=== PATIENT | male | born 1985 | race Caucasian/White ===

== ENCOUNTER 2017-03-13 21:06 | Inpatient (IN) | payer MEDICARE, MEDICAID ==
[~2017-03-13] VITALS: Ht 167.6 cm; Wt 94.1 kg
[~2017-03-13 21:06] MED LIST: DIPH25 PO; DIVA500T52 PO; OLAN5TAB5 PO
[2017-03-13] MEDS ORDERED: RISP2 PO (22:06)
[2017-03-13] MEDS ORDERED: DIPH25 PO (22:06)
[2017-03-13] MEDS ORDERED: TRAZ-147 PO (22:06)
[2017-03-13 22:25] LABS: BASOPHILS % (AUTO) 0.5 % (0.0-2.0); EOSINOPHILS % (AUTO) 2.1 % (1.0-6.0); HEMATOCRIT 45.8 % (41-53); HEMOGLOBIN 15.3 g/dL (13.5-17.5); LYMPHOCYTES # (AUTO) 2.5 K/uL (1.0-4.8); LYMPHOCYTES % (AUTO) 22.9 % (22.0-44.0); MEAN CORPUSCULAR HEMOGLOBIN 29.1 pg (26.0-34.0); MEAN CORPUSCULAR HGB CONC 33.4 G/dL (31.0-37.0); MEAN CORPUSCULAR VOLUME 87 fL (80-100); MONOCYTES # (AUTO) 0.9 K/uL (0.1-1.0); MONOCYTES % (AUTO) 8.1 % (2.0-9.0); NEUTROPHILS # (AUTO) 7.2 K/uL (1.8-7.7); NEUTROPHILS % (AUTO) 66.4 % (40.0-70.0); PLATELET COUNT (AUTO) 291 K/uL (150-450); RED BLOOD CELL COUNT(AUTO) 5.26 MIL/uL (4.50-5.90); RED CELL DISTRIBUTION WIDTH 13.1 % (11.5-14.5); WHITE BLOOD COUNT (AUTO) 10.8 K/uL (4.5-11.0)
[2017-03-13] MEDS ORDERED: ZOLPIDEM TARTRATE 10 MG TABLET PO PRN (22:30)
[2017-03-13 22:37] LABS: ANION GAP 5 mmol/L (8-16); CALCIUM, TOTAL 9.1 mg/dL (8.8-10.5); CARBON DIOXIDE 32 mmol/L (22-29); CHLORIDE 103 mmol/L (98-107); CREATININE 0.98 mg/dL (0.60-1.30); GLOMERULAR FILTR. RATE CALC > 60 mL/min (>60); POTASSIUM 3.3 mmol/L (3.5-5.1); SODIUM SERUM 140 mmol/L (136-145); UREA NITROGEN, BLOOD 11 mg/dL (7-18)
[2017-03-13 22:43] LABS: ALANINE AMINOTRANSFERASE 33 U/L (12-78); ALBUMIN 3.7 g/dL (3.4-5.0); ASPARTATE AMINOTRANSFERASE 21 U/L (15-37); BILIRUBIN,TOTAL 0.3 mg/dL (0.1-1.0); TOTAL PROTEIN, SERUM 7.8 g/dL (6.4-8.2)
[2017-03-14 01:23] VITALS: BP 125/78
[2017-03-14] MEDS: OLANZapine 5 MG RAPDIS TABLET PO PRN ×2 (01:25→13:15)
[2017-03-14] MEDS ORDERED: INFLUENZA VIRUS VACCINE QVS 2017-18 (3YR+)/PF 60 MCG/0.5 ML SYRINGE IM ONE (03:00)
[2017-03-14] MEDS ORDERED: POTASSIUM CHLORIDE 20 MEQ ER TABLET PO ONE (08:00)
[2017-03-14] MEDS: NICOTINE 21 MG/24 HOUR PATCH TD SCH (08:45)
[2017-03-14 08:49] VITALS: BP 112/64
[2017-03-14 16:04] VITALS: BP 108/63
[2017-03-14] MEDS: LORazepam 2 MG TABLET PO PRN (18:29)
[2017-03-14] MEDS: RisperiDONE 2 MG TABLET PO SCH (20:20)
[2017-03-14] MEDS: DiphenhydrAMINE HCL 50 MG CAPSULE PO SCH (20:20)
[2017-03-14] MEDS: TraZODone HCL 100 MG TABLET PO SCH (20:20)
[2017-03-15 04:58] VITALS: BP 115/70
[2017-03-15 08:21] VITALS: BP 116/75
[2017-03-15] MEDS: NICOTINE 21 MG/24 HOUR PATCH TD SCH (08:27)
[2017-03-15 09:41] LABS: HEMOGLOBIN A1C 5.6 % (4.5-6.2)
[2017-03-15 09:55] LABS: POTASSIUM 4.5 mmol/L (3.5-5.1); THYROID STIMULATING HORMONE 0.94 uIU/mL (0.36-3.74)
[2017-03-15 16:08] VITALS: BP 121/68
[2017-03-15] MEDS: DiphenhydrAMINE HCL 50 MG CAPSULE PO SCH (20:16)
[2017-03-15] MEDS: RisperiDONE 2 MG TABLET PO SCH (20:16)
[2017-03-15] MEDS: TraZODone HCL 100 MG TABLET PO SCH (20:16)
[2017-03-16 05:55] VITALS: BP 127/72
[2017-03-16 08:25] VITALS: BP 112/68
[2017-03-16] MEDS: NICOTINE 21 MG/24 HOUR PATCH TD SCH (09:01)
[2017-03-16] MEDS: LORazepam 2 MG TABLET PO PRN ×2 (10:48→16:27)
[2017-03-16 16:15] VITALS: BP 124/87
[2017-03-16] MEDS: RisperiDONE 2 MG TABLET PO SCH (20:21)
[2017-03-16] MEDS: DiphenhydrAMINE HCL 50 MG CAPSULE PO SCH (20:21)
[2017-03-16] MEDS: TraZODone HCL 100 MG TABLET PO SCH (20:21)
[2017-03-17 01:46] VITALS: BP 119/67
[2017-03-17] MEDS: NICOTINE 21 MG/24 HOUR PATCH TD SCH (08:38)
[2017-03-17 08:41] VITALS: BP 117/74
[2017-03-17 16:26] VITALS: BP 133/87
[2017-03-17] MEDS: TraZODone HCL 100 MG TABLET PO SCH (20:11)
[2017-03-17] MEDS: DiphenhydrAMINE HCL 50 MG CAPSULE PO SCH (20:12)
[2017-03-17] MEDS: RisperiDONE 2 MG TABLET PO SCH (20:12)
== END 2017-03-17 21:15 | disposition home or self-care (01) | DRG 885 ==
LOC: EMS 21:08 → B2X 23:28
PROVIDERS: ADMIT Psychiatry & Neurology Child & Adolescent Psychiatry; ATTEND Psychiatry & Neurology Child & Adolescent Psychiatry
PROC: 3E0234Z Introduction of Serum, Toxoid and Vaccine into Muscle, Percutaneous Approach (ICD-10-PCS; principal; 2017-03-14)
DX: F20.0 Paranoid schizophrenia (principal); G40.909 Epilepsy, unspecified, not intractable, without status epilepticus; F12.10 Cannabis abuse, uncomplicated; F19.20 Other psychoactive substance dependence, uncomplicated; F15.10 Other stimulant abuse, uncomplicated; F41.9 Anxiety disorder, unspecified; F17.200 Nicotine dependence, unspecified, uncomplicated; Z88.8 Allergy status to other drugs, medicaments and biological substances; Z79.899 Other long term (current) drug therapy; Z23 Encounter for immunization
CPT/HCPCS: 83036; 84132; 84439; 84443; 90471; 99285; G0480

== ENCOUNTER 2017-05-04 16:23 | Inpatient (IN) | payer MEDICAID, MEDICARE ==
[~2017-05-04] VITALS: Ht 167.6 cm; Wt 88.9 kg
[~2017-05-04 16:23] MED LIST changes: -DIVA500T52 PO; -OLAN5TAB5 PO; +RISP2 PO; +TRAZ-147 PO
[2017-05-04 16:59] LABS: BASOPHILS % (AUTO) 1.2 % (0.0-2.0); EOSINOPHILS % (AUTO) 1.2 % (1.0-6.0); HEMATOCRIT 43.3 % (41-53); HEMOGLOBIN 14.3 g/dL (13.5-17.5); LYMPHOCYTES # (AUTO) 2.7 K/uL (1.0-4.8); LYMPHOCYTES % (AUTO) 25.9 % (22.0-44.0); MEAN CORPUSCULAR HEMOGLOBIN 28.6 pg (26.0-34.0); MEAN CORPUSCULAR HGB CONC 32.9 G/dL (31.0-37.0); MEAN CORPUSCULAR VOLUME 87 fL (80-100); MONOCYTES % (AUTO) 9.1 % (2.0-9.0); NEUTROPHILS # (AUTO) 6.6 K/uL (1.8-7.7); NEUTROPHILS % (AUTO) 62.6 % (40.0-70.0); PLATELET COUNT (AUTO) 252 K/uL (150-450); RED BLOOD CELL COUNT(AUTO) 4.99 MIL/uL (4.50-5.90); RED CELL DISTRIBUTION WIDTH 13.5 % (11.5-14.5)
[2017-05-04 17:10] LABS: ANION GAP 6 mmol/L (8-16); CARBON DIOXIDE 31 mmol/L (22-29); CHLORIDE 106 mmol/L (98-107); CREATININE 0.89 mg/dL (0.60-1.30); GLOMERULAR FILTR. RATE CALC > 60 mL/min (>60); GLUCOSE,RANDOM 109 mg/dL (70-110); POTASSIUM 3.8 mmol/L (3.5-5.1); SODIUM SERUM 143 mmol/L (136-145); UREA NITROGEN, BLOOD 12 mg/dL (7-18)
[2017-05-04 17:14] LABS: AMPHET/METH SCREEN,URINE POSITIVE (NEGATIVE); BARBITURATE SCREEN, URINE NEGATIVE (NEGATIVE); BENZODIAZEPINES SCREEN,URINE NEGATIVE (NEGATIVE); CANNABINOID SCREEN,URINE POSITIVE (NEGATIVE); COCAINE SCREEN,URINE NEGATIVE (NEGATIVE); METHADONE SCREEN, URINE NEGATIVE (NEGATIVE); OPIATE SCREEN,URINE NEGATIVE (NEGATIVE)
[2017-05-04] MEDS ORDERED: ZOLPIDEM TARTRATE 10 MG TABLET PO PRN (17:15)
[2017-05-04 17:16] LABS: PHENCYCLIDINE SCREEN,URINE NEGATIVE (NEGATIVE)
[2017-05-04 17:17] LABS: ALANINE AMINOTRANSFERASE 29 U/L (12-78); ALBUMIN 3.5 g/dL (3.4-5.0); ALKALINE PHOSPHATASE 112 U/L (46-116); ASPARTATE AMINOTRANSFERASE 20 U/L (15-37); BILIRUBIN,TOTAL 0.3 mg/dL (0.1-1.0)
[2017-05-04] MEDS: LORazepam 2 MG TABLET PO PRN (17:39)
[2017-05-05] MEDS: LORazepam 2 MG TABLET PO PRN ×2 (09:12→14:44)
[2017-05-05 09:18] LABS: CHOL/HDL RATIO 3.7 (4.2-7.3)
[2017-05-05 14:07] VITALS: BP 122/72
[2017-05-05] MEDS: NICOTINE 21 MG/24 HOUR PATCH TD SCH (14:44)
[2017-05-05 16:19] VITALS: BP 138/56
[2017-05-06 01:25] VITALS: BP 106/61
[2017-05-06] MEDS ORDERED: -PHARMACY VACCINE NOTE- MISC ONE (04:30)
[2017-05-06] MEDS: LORazepam 2 MG TABLET PO PRN ×2 (06:14→11:20)
[2017-05-06 08:32] VITALS: BP 111/65
[2017-05-06] MEDS: RisperiDONE 1 MG TABLET PO SCH (10:02)
[2017-05-06] MEDS: NICOTINE 21 MG/24 HOUR PATCH TD SCH (10:02)
[2017-05-06] MEDS: CITALOPRAM HYDROBROMIDE 20 MG TABLET PO SCH (11:19)
[2017-05-06 16:23] VITALS: BP 123/74
[2017-05-06] MEDS: RisperiDONE 2 MG TABLET PO SCH (20:44)
[2017-05-06] MEDS: TraZODone HCL 100 MG TABLET PO SCH (20:44)
[2017-05-06] MEDS: DiphenhydrAMINE HCL 25 MG CAPSULE PO SCH (20:44)
[2017-05-07 06:28] VITALS: BP 108/62
[2017-05-07] MEDS: LORazepam 2 MG TABLET PO PRN ×2 (06:40→16:11)
[2017-05-07 08:32] VITALS: BP 100/62
[2017-05-07] MEDS: NICOTINE 21 MG/24 HOUR PATCH TD SCH (09:21)
[2017-05-07] MEDS: RisperiDONE 1 MG TABLET PO SCH (09:21)
[2017-05-07] MEDS: CITALOPRAM HYDROBROMIDE 20 MG TABLET PO SCH (09:21)
[2017-05-07 16:22] VITALS: BP 126/77
[2017-05-07] MEDS: RisperiDONE 2 MG TABLET PO SCH (20:58)
[2017-05-07] MEDS: DiphenhydrAMINE HCL 25 MG CAPSULE PO SCH (20:58)
[2017-05-07] MEDS: TraZODone HCL 100 MG TABLET PO SCH (20:58)
[2017-05-08 01:38] VITALS: BP 114/68
[2017-05-08 08:36] VITALS: BP 110/68
[2017-05-08] MEDS: CITALOPRAM HYDROBROMIDE 20 MG TABLET PO SCH (09:09)
[2017-05-08] MEDS: RisperiDONE 1 MG TABLET PO SCH (09:09)
[2017-05-08] MEDS: NICOTINE 21 MG/24 HOUR PATCH TD SCH (09:10)
[2017-05-08 16:13] VITALS: BP 134/88
[2017-05-08] MEDS: DiphenhydrAMINE HCL 25 MG CAPSULE PO SCH (20:33)
[2017-05-08] MEDS: TraZODone HCL 100 MG TABLET PO SCH (20:33)
[2017-05-08] MEDS: RisperiDONE 2 MG TABLET PO SCH (20:33)
[2017-05-09 06:46] VITALS: BP 102/83
[2017-05-09] MEDS: CITALOPRAM HYDROBROMIDE 20 MG TABLET PO SCH (08:33)
[2017-05-09] MEDS: RisperiDONE 1 MG TABLET PO SCH (08:33)
[2017-05-09] MEDS: NICOTINE 21 MG/24 HOUR PATCH TD SCH (08:33)
[2017-05-09 08:39] VITALS: BP 123/79
[2017-05-09] MEDS: LORazepam 2 MG TABLET PO PRN ×2 (08:53→17:26)
[2017-05-09 16:23] VITALS: BP 136/79
[2017-05-09] MEDS: TraZODone HCL 100 MG TABLET PO SCH (20:55)
[2017-05-09] MEDS: DiphenhydrAMINE HCL 25 MG CAPSULE PO SCH (20:56)
[2017-05-09] MEDS: RisperiDONE 2 MG TABLET PO SCH (20:57)
[2017-05-10 01:00] VITALS: BP_SYST 104; BP_DIAS 59; BP_DIAS 60
[2017-05-10 08:37] VITALS: BP 106/67
[2017-05-10] MEDS: RisperiDONE 1 MG TABLET PO SCH (09:00)
[2017-05-10] MEDS: CITALOPRAM HYDROBROMIDE 20 MG TABLET PO SCH (09:00)
[2017-05-10] MEDS: NICOTINE 21 MG/24 HOUR PATCH TD SCH (09:00)
[2017-05-10 16:20] VITALS: BP 122/78
[2017-05-10] MEDS: RisperiDONE 2 MG TABLET PO SCH (20:37)
[2017-05-10] MEDS: TraZODone HCL 100 MG TABLET PO SCH (20:37)
[2017-05-10] MEDS: DiphenhydrAMINE HCL 25 MG CAPSULE PO SCH (20:37)
[2017-05-11 00:18] VITALS: BP 124/81
[2017-05-11 08:33] VITALS: BP 123/67
[2017-05-11] MEDS: NICOTINE 21 MG/24 HOUR PATCH TD SCH (08:47)
[2017-05-11] MEDS: RisperiDONE 1 MG TABLET PO SCH (08:47)
[2017-05-11] MEDS: CITALOPRAM HYDROBROMIDE 20 MG TABLET PO SCH (08:47)
[2017-05-11] MEDS: LORazepam 2 MG TABLET PO PRN (08:51)
[2017-05-11] MEDS ORDERED: CITA20TA9 PO (14:59)
[2017-05-11] MEDS ORDERED: RISP1TAB89 PO (14:59)
[2017-05-11 16:24] VITALS: BP 121/80
[2017-05-11] MEDS: RisperiDONE 2 MG TABLET PO SCH (20:05)
[2017-05-11] MEDS: TraZODone HCL 100 MG TABLET PO SCH (20:05)
[2017-05-11] MEDS: DiphenhydrAMINE HCL 25 MG CAPSULE PO SCH (20:05)
[2017-05-12 01:27] VITALS: BP 105/60
[2017-05-12] MEDS: CITALOPRAM HYDROBROMIDE 20 MG TABLET PO SCH (08:30)
[2017-05-12] MEDS: RisperiDONE 1 MG TABLET PO SCH (08:30)
[2017-05-12] MEDS: NICOTINE 21 MG/24 HOUR PATCH TD SCH (08:32)
[2017-05-12 08:46] VITALS: BP 130/76
[2017-05-12 16:13] VITALS: BP 136/73
[2017-05-12] MEDS: DiphenhydrAMINE HCL 25 MG CAPSULE PO SCH (20:45)
[2017-05-12] MEDS: TraZODone HCL 100 MG TABLET PO SCH (20:45)
[2017-05-12] MEDS: RisperiDONE 2 MG TABLET PO SCH (20:45)
[2017-05-13] VITALS: BP 119/62
[2017-05-13] MEDS: CITALOPRAM HYDROBROMIDE 20 MG TABLET PO SCH (08:14)
[2017-05-13] MEDS: NICOTINE 21 MG/24 HOUR PATCH TD SCH (08:14)
[2017-05-13] MEDS: RisperiDONE 1 MG TABLET PO SCH (08:14)
[2017-05-13 08:31] VITALS: BP 128/67
[2017-05-13 16:19] VITALS: BP 115/70
[2017-05-13] MEDS: DiphenhydrAMINE HCL 25 MG CAPSULE PO SCH (20:30)
[2017-05-13] MEDS: RisperiDONE 2 MG TABLET PO SCH (20:31)
[2017-05-13] MEDS: TraZODone HCL 100 MG TABLET PO SCH (20:31)
[2017-05-14 00:30] VITALS: BP 100/66
[2017-05-14] MEDS: CITALOPRAM HYDROBROMIDE 20 MG TABLET PO SCH (08:42)
[2017-05-14] MEDS: NICOTINE 21 MG/24 HOUR PATCH TD SCH (08:42)
[2017-05-14] MEDS: RisperiDONE 1 MG TABLET PO SCH (08:42)
[2017-05-14 09:23] VITALS: BP 132/87
== END 2017-05-14 10:00 | disposition home or self-care (01) | DRG 885 ==
LOC: EMS 16:24 → B2X 05-05 12:08
DX: F25.1 Schizoaffective disorder, depressive type (principal); F79 Unspecified intellectual disabilities; R45.851 Suicidal ideations; F12.10 Cannabis abuse, uncomplicated; F15.10 Other stimulant abuse, uncomplicated; G40.909 Epilepsy, unspecified, not intractable, without status epilepticus; Z59.0 Homelessness; Z79.899 Other long term (current) drug therapy; Z91.5 Personal history of self-harm; Z91.14 Patient's other noncompliance with medication regimen; Z88.8 Allergy status to other drugs, medicaments and biological substances
CPT/HCPCS: 93005; 99285; G0480

== ENCOUNTER 2017-11-20 18:24 | Emergency (ER) | payer MEDICARE, SELFPAY ==
[~2017-11-20 18:24] MED LIST changes: +CITA-106 PO; +RISP1TAB89 PO; -TRAZ-147 PO; +TRAZ-220 PO
[2017-11-20 19:19] LABS: BASOPHILS % (AUTO) 0.4 % (0.0-2.0); EOSINOPHILS % (AUTO) 0.5 % (1.0-6.0); HEMOGLOBIN 14.4 g/dL (13.5-17.5); LYMPHOCYTES # (AUTO) 2.1 K/uL (1.0-4.8); LYMPHOCYTES % (AUTO) 18.4 % (22.0-44.0); MEAN CORPUSCULAR HEMOGLOBIN 29.6 pg (26.0-34.0); MEAN CORPUSCULAR HGB CONC 32.8 G/dL (31.0-37.0); MEAN CORPUSCULAR VOLUME 90 fL (80-100); MONOCYTES % (AUTO) 8.6 % (2.0-9.0); NEUTROPHILS # (AUTO) 8.3 K/uL (1.8-7.7); NEUTROPHILS % (AUTO) 72.1 % (40.0-70.0); PLATELET COUNT (AUTO) 275 K/uL (150-450); RED BLOOD CELL COUNT(AUTO) 4.88 MIL/uL (4.50-5.90); RED CELL DISTRIBUTION WIDTH 13.6 % (11.5-14.5)
[2017-11-20 19:39] LABS: ALANINE AMINOTRANSFERASE 25 U/L (12-78); ALBUMIN 3.7 g/dL (3.4-5.0); ALKALINE PHOSPHATASE 84 U/L (46-116); ANION GAP 8 mmol/L (8-16); ASPARTATE AMINOTRANSFERASE 19 U/L (15-37); BILIRUBIN,TOTAL 0.4 mg/dL (0.1-1.0); CALCIUM, TOTAL 9.2 mg/dL (8.8-10.5); CARBON DIOXIDE 28 mmol/L (22-29); CHLORIDE 105 mmol/L (98-107); CREATININE 0.95 mg/dL (0.60-1.30); GLOMERULAR FILTR. RATE CALC > 60 mL/min (>60); GLUCOSE,RANDOM 96 mg/dL (70-110); POTASSIUM 3.9 mmol/L (3.5-5.1); SODIUM SERUM 141 mmol/L (136-145); TOTAL PROTEIN, SERUM 7.2 g/dL (6.4-8.2); UREA NITROGEN, BLOOD 10 mg/dL (7-18)
== END 2017-11-20 19:43 | disposition left against medical advice (07) ==
LOC: EMS 18:25
DX: Z53.21 Procedure and treatment not carried out due to patient leaving prior to being seen by health care provider (principal)
CPT/HCPCS: 36415; 80053; 85025; G0480; 99284

== ENCOUNTER 2018-05-06 10:52 | Inpatient (IN) | payer MEDICARE, MEDICAID ==
[~2018-05-06] VITALS: Ht 162.6 cm; Wt 83.4 kg
[~2018-05-06 10:52] MED LIST changes: -TRAZ-220 PO
[2018-05-06] MEDS ORDERED: RisperiDONE 1 MG TABLET PO SCH (11:15)
[2018-05-06] MEDS ORDERED: CITALOPRAM HYDROBROMIDE 20 MG TABLET PO SCH (11:15)
[2018-05-06] MEDS ORDERED: ZOLPIDEM TARTRATE 10 MG TABLET PO PRN (11:15)
[2018-05-06 13:11] VITALS: BP 127/77
[2018-05-06] MEDS ORDERED: MAGNESIUM HYDROXIDE SUSPENSION 30 ML UDCUP PO PRN (13:15)
[2018-05-06] MEDS ORDERED: GuaiFENesin/D-METHORPHAN [SUGAR-FREE] 200-20MG/10 ML SYRUP UDCUP PO PRN (13:15)
[2018-05-06] MEDS ORDERED: MAG HYDROX/AL HYDROX/SIMETH ES 30 ML SUSPENSION UDCUP PO PRN (13:15)
[2018-05-06] MEDS ORDERED: DOCUSATE SODIUM 100 MG CAPSULE PO PRN (13:15)
[2018-05-06] MEDS ORDERED: NICOTINE 14 MG/24 HOUR PATCH TD PRN (13:15)
[2018-05-06] MEDS ORDERED: IBUPROFEN 400 MG TABLET PO PRN (13:15)
[2018-05-06] MEDS ORDERED: CloNIDine HCL 0.1 MG TABLET PO PRN (13:15)
[2018-05-06] MEDS ORDERED: ACETAMINOPHEN 325 MG TABLET PO PRN (13:15)
[2018-05-06] MEDS ORDERED: ONDANSETRON HCL 4 MG TABLET PO PRN (13:15)
[2018-05-06] MEDS ORDERED: LOPERAMIDE HCL 2 MG CAPSULE PO PRN (13:15)
[2018-05-06] MEDS ORDERED: PETROLATUM,WHITE 71 GM JELLY TP PRN (13:15)
[2018-05-06 16:12] VITALS: BP 100/61
[2018-05-06] MEDS: LORazepam 2 MG TABLET PO PRN (17:22)
[2018-05-06] MEDS: OLANZapine 5 MG RAPDIS TABLET PO PRN (17:29)
[2018-05-06] MEDS: RisperiDONE 2 MG TABLET PO SCH (20:36)
[2018-05-06] MEDS: DiphenhydrAMINE HCL 25 MG CAPSULE PO SCH (20:37)
[2018-05-06] MEDS ORDERED: RisperiDONE 2 MG TABLET PO SCH (21:00)
[2018-05-06] MEDS ORDERED: DiphenhydrAMINE HCL 25 MG CAPSULE PO SCH (21:00)
[2018-05-07 06:22] VITALS: BP 105/60
[2018-05-07] MEDS ORDERED: -PHARMACY VACCINE NOTE- MISC ONE (06:30)
[2018-05-07 08:15] VITALS: BP 110/70
[2018-05-07] MEDS: CITALOPRAM HYDROBROMIDE 20 MG TABLET PO SCH (08:35)
[2018-05-07] MEDS: RisperiDONE 1 MG TABLET PO SCH (08:35)
[2018-05-07] MEDS: LORazepam 2 MG TABLET PO PRN ×2 (08:35→16:36)
[2018-05-07 09:09] LABS: BASOPHILS % (AUTO) 0.9 % (0.0-2.0); EOSINOPHILS % (AUTO) 2.3 % (1.0-6.0); HEMATOCRIT 43.5 % (41-53); HEMOGLOBIN 14.1 g/dL (13.5-17.5); LYMPHOCYTES # (AUTO) 1.5 K/uL (1.0-4.8); LYMPHOCYTES % (AUTO) 23.9 % (22.0-44.0); MEAN CORPUSCULAR HEMOGLOBIN 29.5 pg (26.0-34.0); MEAN CORPUSCULAR HGB CONC 32.5 G/dL (31.0-37.0); MEAN CORPUSCULAR VOLUME 91 fL (80-100); MONOCYTES # (AUTO) 0.5 K/uL (0.1-1.0); MONOCYTES % (AUTO) 8.5 % (2.0-9.0); NEUTROPHILS # (AUTO) 4.1 K/uL (1.8-7.7); NEUTROPHILS % (AUTO) 64.4 % (40.0-70.0); PLATELET COUNT (AUTO) 227 K/uL (150-450); RED BLOOD CELL COUNT(AUTO) 4.79 MIL/uL (4.50-5.90); RED CELL DISTRIBUTION WIDTH 13.9 % (11.5-14.5)
[2018-05-07 09:10] LABS: ALANINE AMINOTRANSFERASE 33 U/L (12-78); ALBUMIN 3.2 g/dL (3.4-5.0); ALKALINE PHOSPHATASE 81 U/L (46-116); ANION GAP 4 mmol/L (8-16); ASPARTATE AMINOTRANSFERASE 18 U/L (15-37); BILIRUBIN,TOTAL 0.4 mg/dL (0.1-1.0); CALCIUM, TOTAL 8.9 mg/dL (8.8-10.5); CARBON DIOXIDE 32 mmol/L (22-29); CHLORIDE 103 mmol/L (98-107); CHOL/HDL RATIO 3.6 (4.2-7.3); CHOLESTEROL 190 mg/dL (131-200); CREATININE 0.83 mg/dL (0.60-1.30); FREE T4 (FREE THYROXINE) 0.86 ng/dL (0.76-1.46); GLOMERULAR FILTR. RATE CALC > 60 mL/min (>60); GLUCOSE,RANDOM 58 mg/dL (70-110); HDL CHOLESTEROL 53 mg/dL (40-60); LDL CHOL (CALC.) 120 mg/dL (0-130); POTASSIUM 3.9 mmol/L (3.5-5.1); SODIUM SERUM 139 mmol/L (136-145); TOTAL PROTEIN, SERUM 6.6 g/dL (6.4-8.2); TRIGLYCERIDES 85 mg/dL (15-150); UREA NITROGEN, BLOOD 19 mg/dL (7-18)
[2018-05-07 09:42] LABS: HEMOGLOBIN A1C 5.5 % (4.5-6.2)
[2018-05-07] MEDS: ALBUTEROL SULFATE HFA 90 MCG/PUFF 8 GM INHALER IH PRN (11:38)
[2018-05-07 12:44] LABS: GLUCOMETER DEV NAME(LOC) BV2S.; GLUCOSE,POINT OF CARE 116 MG/DL (70-110)
[2018-05-07 16:28] VITALS: BP 117/74
[2018-05-07] MEDS: OLANZapine 5 MG RAPDIS TABLET PO PRN (16:36)
[2018-05-07] MEDS: DiphenhydrAMINE HCL 25 MG CAPSULE PO SCH (20:59)
[2018-05-07] MEDS: RisperiDONE 2 MG TABLET PO SCH (20:59)
[2018-05-08] MEDS: LORazepam 2 MG TABLET PO PRN ×2 (02:08→08:39)
[2018-05-08] MEDS: OLANZapine 5 MG RAPDIS TABLET PO PRN (02:08)
[2018-05-08 05:12] VITALS: BP 108/62
[2018-05-08 08:05] VITALS: BP 106/68
[2018-05-08] MEDS: CITALOPRAM HYDROBROMIDE 20 MG TABLET PO SCH (08:17)
[2018-05-08] MEDS: RisperiDONE 1 MG TABLET PO SCH (08:17)
[2018-05-08 08:24] LABS: AMPHET/METH SCREEN,URINE NEGATIVE (NEGATIVE); BARBITURATE SCREEN, URINE NEGATIVE (NEGATIVE); BENZODIAZEPINES SCREEN,URINE NEGATIVE (NEGATIVE); CANNABINOID SCREEN,URINE NEGATIVE (NEGATIVE); COCAINE SCREEN,URINE NEGATIVE (NEGATIVE); METHADONE SCREEN, URINE NEGATIVE (NEGATIVE); OPIATE SCREEN,URINE NEGATIVE (NEGATIVE); PHENCYCLIDINE SCREEN,URINE NEGATIVE (NEGATIVE)
[2018-05-08 08:25] LABS: BILIRUBIN,URINE NEGATIVE (NEGATIVE); GLUCOSE, URINE (UA) NEGATIVE (NEGATIVE); KETONES,URINE NEGATIVE (NEGATIVE); LEUKOCYTE ESTERASE ,URINE NEGATIVE (NEGATIVE); NITRATE,URINE NEGATIVE (NEGATIVE); OCCULT BLOOD,URINE NEGATIVE (NEGATIVE); PROTEIN,URINE NEGATIVE (NEGATIVE); UROBILINOGEN,URINE 0.2 mg/dL (<=1.0)
[2018-05-08 08:27] LABS: APPEARANCE,URINE HAZY (CLEAR)
[2018-05-08] MEDS ORDERED: DiphenhydrAMINE HCL 50 MG/ML VIAL ONE (09:56)
[2018-05-08] MEDS ORDERED: LORazepam 2 MG/ML VIAL IM ONE (10:00)
[2018-05-08] MEDS ORDERED: DiphenhydrAMINE HCL 50 MG/ML VIAL IM ONE (10:00)
[2018-05-08] MEDS: ALBUTEROL SULFATE HFA 90 MCG/PUFF 8 GM INHALER IH PRN (10:04)
[2018-05-08 10:35] VITALS: BP 112/84
[2018-05-08 16:04] VITALS: BP 135/76
[2018-05-08] MEDS: RisperiDONE 2 MG TABLET PO SCH (20:14)
[2018-05-08] MEDS: DiphenhydrAMINE HCL 25 MG CAPSULE PO SCH (20:14)
[2018-05-09 06:57] VITALS: BP 130/81
[2018-05-09 07:47] VITALS: BP 132/73
[2018-05-09 08:06] VITALS: BP 132/73
[2018-05-09] MEDS: RisperiDONE 1 MG TABLET PO SCH (08:40)
[2018-05-09] MEDS: LORazepam 2 MG TABLET PO PRN ×2 (08:40→16:29)
[2018-05-09] MEDS: CITALOPRAM HYDROBROMIDE 20 MG TABLET PO SCH (08:40)
[2018-05-09] MEDS: ALBUTEROL SULFATE HFA 90 MCG/PUFF 8 GM INHALER IH PRN (13:29)
[2018-05-09 16:06] VITALS: BP 127/79
[2018-05-09] MEDS: RisperiDONE 2 MG TABLET PO SCH (20:11)
[2018-05-09] MEDS: DiphenhydrAMINE HCL 25 MG CAPSULE PO SCH (20:11)
[2018-05-10 03:20] VITALS: BP 121/81
[2018-05-10] MEDS: CITALOPRAM HYDROBROMIDE 20 MG TABLET PO SCH (08:30)
[2018-05-10] MEDS: RisperiDONE 1 MG TABLET PO SCH (08:30)
[2018-05-10] MEDS: LORazepam 2 MG TABLET PO PRN ×2 (08:30→16:59)
[2018-05-10] MEDS: ALBUTEROL SULFATE HFA 90 MCG/PUFF 8 GM INHALER IH PRN ×2 (10:03→16:50)
[2018-05-10 13:02] VITALS: BP 123/78
[2018-05-10 16:12] VITALS: BP 118/81
[2018-05-10] MEDS: DiphenhydrAMINE HCL 25 MG CAPSULE PO SCH (20:32)
[2018-05-10] MEDS: RisperiDONE 2 MG TABLET PO SCH (20:33)
[2018-05-11 00:10] VITALS: BP 112/71
[2018-05-11 08:19] VITALS: BP 106/69
[2018-05-11] MEDS: CITALOPRAM HYDROBROMIDE 20 MG TABLET PO SCH (09:35)
[2018-05-11] MEDS: RisperiDONE 1 MG TABLET PO SCH (09:35)
[2018-05-11] MEDS: ALBUTEROL SULFATE HFA 90 MCG/PUFF 8 GM INHALER IH PRN (15:42)
[2018-05-11] MEDS: OLANZapine 5 MG RAPDIS TABLET PO PRN (15:49)
[2018-05-11 16:05] VITALS: BP 106/77
[2018-05-11] MEDS: DiphenhydrAMINE HCL 25 MG CAPSULE PO SCH (20:32)
[2018-05-11] MEDS: RisperiDONE 2 MG TABLET PO SCH (20:32)
[2018-05-12 03:31] VITALS: BP 117/74
[2018-05-12] MEDS: CITALOPRAM HYDROBROMIDE 20 MG TABLET PO SCH (08:05)
[2018-05-12] MEDS: RisperiDONE 1 MG TABLET PO SCH (08:05)
[2018-05-12] MEDS: ALBUTEROL SULFATE HFA 90 MCG/PUFF 8 GM INHALER IH PRN ×2 (08:06→17:23)
[2018-05-12 08:08] VITALS: BP 109/68
[2018-05-12 16:17] VITALS: BP 117/75
[2018-05-12] MEDS: DiphenhydrAMINE HCL 25 MG CAPSULE PO SCH (20:32)
[2018-05-12] MEDS: RisperiDONE 2 MG TABLET PO SCH (20:32)
[2018-05-13 01:22] VITALS: BP 121/76
[2018-05-13] MEDS: CITALOPRAM HYDROBROMIDE 20 MG TABLET PO SCH (08:20)
[2018-05-13] MEDS: ALBUTEROL SULFATE HFA 90 MCG/PUFF 8 GM INHALER IH PRN ×2 (08:20→17:05)
[2018-05-13] MEDS: RisperiDONE 1 MG TABLET PO SCH (08:20)
[2018-05-13 08:21] VITALS: BP 128/70
[2018-05-13 16:05] VITALS: BP 118/83
[2018-05-13] MEDS: OLANZapine 5 MG RAPDIS TABLET PO PRN (17:11)
[2018-05-13] MEDS: DiphenhydrAMINE HCL 25 MG CAPSULE PO SCH (20:06)
[2018-05-13] MEDS: RisperiDONE 2 MG TABLET PO SCH (20:06)
[2018-05-14 02:38] VITALS: BP 102/64
[2018-05-14 08:23] VITALS: BP 96/50
[2018-05-14] MEDS: CITALOPRAM HYDROBROMIDE 20 MG TABLET PO SCH (08:29)
[2018-05-14] MEDS: RisperiDONE 1 MG TABLET PO SCH (08:29)
[2018-05-14] MEDS: ALBUTEROL SULFATE HFA 90 MCG/PUFF 8 GM INHALER IH PRN (11:46)
[2018-05-14 16:02] VITALS: BP 132/77
[2018-05-14] MEDS: RisperiDONE 2 MG TABLET PO SCH (20:35)
[2018-05-14] MEDS: DiphenhydrAMINE HCL 25 MG CAPSULE PO SCH (20:36)
[2018-05-15 03:13] VITALS: BP 103/62
[2018-05-15] MEDS: CITALOPRAM HYDROBROMIDE 20 MG TABLET PO SCH (08:29)
[2018-05-15] MEDS: RisperiDONE 1 MG TABLET PO SCH (08:29)
[2018-05-15] MEDS: ALBUTEROL SULFATE HFA 90 MCG/PUFF 8 GM INHALER IH PRN (08:31)
== END 2018-05-15 09:50 | disposition home or self-care (01) | DRG 885 ==
LOC: B2X 11:00
DX: F25.1 Schizoaffective disorder, depressive type (principal); G93.40 Encephalopathy, unspecified; E16.2 Hypoglycemia, unspecified; E88.09 Other disorders of plasma-protein metabolism, not elsewhere classified; F41.9 Anxiety disorder, unspecified; K21.9 Gastro-esophageal reflux disease without esophagitis; Z79.899 Other long term (current) drug therapy; Z91.19 Patient's noncompliance with other medical treatment and regimen; Z91.5 Personal history of self-harm; Z88.8 Allergy status to other drugs, medicaments and biological substances
CPT/HCPCS: 80307; 83036; 84439; 84443; 87081; J1200; J2060; J3230; J3535

== ENCOUNTER 2018-05-17 18:36 | Inpatient (IN) | payer MEDICARE, MEDICAID ==
[~2018-05-17] VITALS: Ht 167.6 cm; Wt 83.0 kg
[~2018-05-17 18:36] MED LIST changes: -DIPH25 PO
[2018-05-17 19:00] VITALS: BP 118/81
[2018-05-17] MEDS ORDERED: RisperiDONE 2 MG TABLET PO SCH (21:00)
[2018-05-17] MEDS ORDERED: -PHARMACY VACCINE NOTE- MISC ONE (22:45)
[2018-05-18 00:50] VITALS: BP 137/81
[2018-05-18 00:51] VITALS: BP 137/81
[2018-05-18 06:53] LABS: BASOPHILS % (AUTO) 0.9 % (0.0-2.0); HEMOGLOBIN 14.5 g/dL (13.5-17.5); LYMPHOCYTES # (AUTO) 2.4 K/uL (1.0-4.8); LYMPHOCYTES % (AUTO) 33.1 % (22.0-44.0); MEAN CORPUSCULAR HEMOGLOBIN 30.3 pg (26.0-34.0); MEAN CORPUSCULAR HGB CONC 33.9 G/dL (31.0-37.0); MEAN CORPUSCULAR VOLUME 90 fL (80-100); MONOCYTES # (AUTO) 0.9 K/uL (0.1-1.0); MONOCYTES % (AUTO) 11.9 % (2.0-9.0); NEUTROPHILS # (AUTO) 3.8 K/uL (1.8-7.7); NEUTROPHILS % (AUTO) 52.1 % (40.0-70.0); PLATELET COUNT (AUTO) 233 K/uL (150-450); RED BLOOD CELL COUNT(AUTO) 4.79 MIL/uL (4.50-5.90); RED CELL DISTRIBUTION WIDTH 13.4 % (11.5-14.5)
[2018-05-18 07:14] LABS: ALANINE AMINOTRANSFERASE 33 U/L (12-78); ALBUMIN 3.2 g/dL (3.4-5.0); ALKALINE PHOSPHATASE 88 U/L (46-116); ANION GAP 5 mmol/L (8-16); ASPARTATE AMINOTRANSFERASE 22 U/L (15-37); BILIRUBIN,TOTAL 0.4 mg/dL (0.1-1.0); CALCIUM, TOTAL 8.8 mg/dL (8.8-10.5); CARBON DIOXIDE 33 mmol/L (22-29); CHLORIDE 103 mmol/L (98-107); CHOL/HDL RATIO 2.8 (4.2-7.3); CHOLESTEROL 183 mg/dL (131-200); CREATININE 0.93 mg/dL (0.60-1.30); FREE T4 (FREE THYROXINE) 0.85 ng/dL (0.76-1.46); GLOMERULAR FILTR. RATE CALC > 60 mL/min (>60); GLUCOSE,RANDOM 88 mg/dL (70-110); HDL CHOLESTEROL 66 mg/dL (40-60); LDL CHOL (CALC.) 108 mg/dL (0-130); SODIUM SERUM 141 mmol/L (136-145); THYROID STIMULATING HORMONE 1.06 uIU/mL (0.36-3.74); TOTAL PROTEIN, SERUM 6.7 g/dL (6.4-8.2); TRIGLYCERIDES 46 mg/dL (15-150); UREA NITROGEN, BLOOD 19 mg/dL (7-18)
[2018-05-18] MEDS ORDERED: MAG HYDROX/AL HYDROX/SIMETH ES 30 ML SUSPENSION UDCUP PO PRN (07:45)
[2018-05-18] MEDS ORDERED: MAGNESIUM HYDROXIDE SUSPENSION 30 ML UDCUP PO PRN (07:45)
[2018-05-18] MEDS ORDERED: LOPERAMIDE HCL 2 MG CAPSULE PO PRN (07:45)
[2018-05-18] MEDS ORDERED: GuaiFENesin/D-METHORPHAN [SUGAR-FREE] 200-20MG/10 ML SYRUP UDCUP PO PRN (07:45)
[2018-05-18] MEDS ORDERED: CloNIDine HCL 0.1 MG TABLET PO PRN (07:45)
[2018-05-18] MEDS ORDERED: ACETAMINOPHEN 325 MG TABLET PO PRN (07:45)
[2018-05-18] MEDS ORDERED: NICOTINE 14 MG/24 HOUR PATCH TD PRN (07:45)
[2018-05-18] MEDS ORDERED: PETROLATUM,WHITE 71 GM JELLY TP PRN (07:45)
[2018-05-18] MEDS ORDERED: ONDANSETRON HCL 4 MG TABLET PO PRN (07:45)
[2018-05-18] MEDS ORDERED: DOCUSATE SODIUM 100 MG CAPSULE PO PRN (07:45)
[2018-05-18] MEDS ORDERED: IBUPROFEN 400 MG TABLET PO PRN (07:45)
[2018-05-18 07:54] LABS: AMPHET/METH SCREEN,URINE NEGATIVE (NEGATIVE); BARBITURATE SCREEN, URINE NEGATIVE (NEGATIVE); BENZODIAZEPINES SCREEN,URINE NEGATIVE (NEGATIVE); CANNABINOID SCREEN,URINE NEGATIVE (NEGATIVE); COCAINE SCREEN,URINE NEGATIVE (NEGATIVE); METHADONE SCREEN, URINE NEGATIVE (NEGATIVE); OPIATE SCREEN,URINE NEGATIVE (NEGATIVE)
[2018-05-18 07:56] LABS: PHENCYCLIDINE SCREEN,URINE NEGATIVE (NEGATIVE)
[2018-05-18 08:00] VITALS: BP 118/76
[2018-05-18 09:00] LABS: APPEARANCE,URINE CLEAR (CLEAR); BILIRUBIN,URINE NEGATIVE (NEGATIVE); GLUCOSE, URINE (UA) NEGATIVE (NEGATIVE); KETONES,URINE NEGATIVE (NEGATIVE); LEUKOCYTE ESTERASE ,URINE NEGATIVE (NEGATIVE); NITRATE,URINE NEGATIVE (NEGATIVE); OCCULT BLOOD,URINE NEGATIVE (NEGATIVE); PROTEIN,URINE NEGATIVE (NEGATIVE); UROBILINOGEN,URINE 0.2 mg/dL (<=1.0)
[2018-05-18] MEDS ORDERED: CITALOPRAM HYDROBROMIDE 20 MG TABLET PO SCH (09:00)
[2018-05-18] MEDS ORDERED: RisperiDONE 1 MG TABLET PO SCH (09:00)
[2018-05-18] MEDS: LORazepam 2 MG TABLET PO PRN (11:00)
[2018-05-18 16:46] VITALS: BP 94/55
[2018-05-18] MEDS: ALBUTEROL SULFATE HFA 90 MCG/PUFF 8 GM INHALER IH PRN (17:54)
[2018-05-18] MEDS: RisperiDONE 2 MG TABLET PO SCH (20:56)
[2018-05-19 06:42] LABS: HEMOGLOBIN A1C 5.2 % (4.5-6.2)
[2018-05-19 07:02] LABS: ALANINE AMINOTRANSFERASE 30 U/L (12-78); ALBUMIN 3.2 g/dL (3.4-5.0); ALKALINE PHOSPHATASE 81 U/L (46-116); ANION GAP 5 mmol/L (8-16); ASPARTATE AMINOTRANSFERASE 21 U/L (15-37); BILIRUBIN,TOTAL 0.3 mg/dL (0.1-1.0); CALCIUM, TOTAL 9.1 mg/dL (8.8-10.5); CARBON DIOXIDE 32 mmol/L (22-29); CHLORIDE 104 mmol/L (98-107); CHOL/HDL RATIO 3.4 (4.2-7.3); CHOLESTEROL 203 mg/dL (131-200); CREATININE 0.86 mg/dL (0.60-1.30); GLOMERULAR FILTR. RATE CALC > 60 mL/min (>60); GLUCOSE,RANDOM 86 mg/dL (70-110); HDL CHOLESTEROL 60 mg/dL (40-60); LDL CHOL (CALC.) 125 mg/dL (0-130); POTASSIUM 4.6 mmol/L (3.5-5.1); SODIUM SERUM 141 mmol/L (136-145); THYROID STIMULATING HORMONE 0.52 uIU/mL (0.36-3.74); TOTAL PROTEIN, SERUM 6.5 g/dL (6.4-8.2); TRIGLYCERIDES 90 mg/dL (15-150); UREA NITROGEN, BLOOD 18 mg/dL (7-18)
[2018-05-19 08:41] LABS: EOSINOPHILS % (AUTO) 1.6 % (1.0-6.0); HEMATOCRIT 44.3 % (41-53); HEMOGLOBIN 14.6 g/dL (13.5-17.5); LYMPHOCYTES # (AUTO) 1.8 K/uL (1.0-4.8); LYMPHOCYTES % (AUTO) 30.2 % (22.0-44.0); MEAN CORPUSCULAR VOLUME 91 fL (80-100); MONOCYTES # (AUTO) 0.5 K/uL (0.1-1.0); MONOCYTES % (AUTO) 8.8 % (2.0-9.0); NEUTROPHILS # (AUTO) 3.5 K/uL (1.8-7.7); NEUTROPHILS % (AUTO) 58.4 % (40.0-70.0); PLATELET COUNT (AUTO) 232 K/uL (150-450); RED BLOOD CELL COUNT(AUTO) 4.88 MIL/uL (4.50-5.90); RED CELL DISTRIBUTION WIDTH 13.7 % (11.5-14.5)
[2018-05-19 08:50] VITALS: BP 115/76
[2018-05-19] MEDS: RisperiDONE 2 MG TABLET PO SCH ×2 (09:19→20:08)
[2018-05-19] MEDS: CITALOPRAM HYDROBROMIDE 20 MG TABLET PO SCH (09:19)
[2018-05-19] MEDS: ALBUTEROL SULFATE HFA 90 MCG/PUFF 8 GM INHALER IH PRN (16:08)
[2018-05-19 16:50] VITALS: BP 116/78
[2018-05-19] MEDS: ZOLPIDEM TARTRATE 10 MG TABLET PO PRN (20:08)
[2018-05-20] MEDS: CITALOPRAM HYDROBROMIDE 20 MG TABLET PO SCH (07:36)
[2018-05-20] MEDS: RisperiDONE 2 MG TABLET PO SCH ×2 (07:37→20:58)
[2018-05-20] MEDS: ALBUTEROL SULFATE HFA 90 MCG/PUFF 8 GM INHALER IH PRN ×2 (07:37→16:11)
[2018-05-20 08:02] VITALS: BP 114/67
[2018-05-20] MEDS: LORazepam 2 MG TABLET PO PRN ×2 (09:13→18:33)
[2018-05-20] MEDS: OLANZapine 5 MG RAPDIS TABLET PO PRN ×2 (09:14→16:11)
[2018-05-20] MEDS ORDERED: PALIPERIDONE PALMITATE 234 MG/1.5 ML SYRINGE IM ONE (15:00)
[2018-05-20 17:00] VITALS: BP 113/82
[2018-05-21] MEDS: RisperiDONE 2 MG TABLET PO SCH ×2 (08:59→20:08)
[2018-05-21] MEDS: LORazepam 2 MG TABLET PO PRN (08:59)
[2018-05-21] MEDS: OLANZapine 5 MG RAPDIS TABLET PO PRN (08:59)
[2018-05-21] MEDS: CITALOPRAM HYDROBROMIDE 20 MG TABLET PO SCH (09:00)
[2018-05-21 11:02] VITALS: BP 95/68
[2018-05-21 18:01] VITALS: BP 123/79
[2018-05-22] MEDS: CITALOPRAM HYDROBROMIDE 20 MG TABLET PO SCH (09:23)
[2018-05-22] MEDS: RisperiDONE 2 MG TABLET PO SCH ×2 (09:23→20:45)
[2018-05-22] MEDS: ALBUTEROL SULFATE HFA 90 MCG/PUFF 8 GM INHALER IH PRN ×2 (10:08→17:47)
[2018-05-22 10:43] VITALS: BP 119/65
[2018-05-22] MEDS: OLANZapine 5 MG RAPDIS TABLET PO PRN ×2 (16:29→22:19)
[2018-05-22 18:48] VITALS: BP 122/96
[2018-05-23 09:00] VITALS: BP 121/59
[2018-05-23] MEDS: CITALOPRAM HYDROBROMIDE 20 MG TABLET PO SCH (09:46)
[2018-05-23] MEDS: RisperiDONE 2 MG TABLET PO SCH ×2 (09:47→20:18)
[2018-05-23] MEDS: ALBUTEROL SULFATE HFA 90 MCG/PUFF 8 GM INHALER IH PRN (14:52)
[2018-05-23 20:40] VITALS: BP 141/98
[2018-05-24 08:00] VITALS: BP 116/71
[2018-05-24] MEDS: CITALOPRAM HYDROBROMIDE 20 MG TABLET PO SCH (08:52)
[2018-05-24] MEDS: RisperiDONE 2 MG TABLET PO SCH ×2 (08:52→20:35)
[2018-05-24] MEDS: ALBUTEROL SULFATE HFA 90 MCG/PUFF 8 GM INHALER IH PRN ×2 (08:54→16:33)
[2018-05-24] MEDS ORDERED: PALIPERIDONE PALMITATE 156 MG/ML SYRINGE IM ONE (09:00)
[2018-05-24] MEDS: LORazepam 2 MG TABLET PO PRN (11:11)
[2018-05-24 16:49] VITALS: BP 114/86
[2018-05-24] MEDS: ZOLPIDEM TARTRATE 10 MG TABLET PO PRN (20:35)
[2018-05-25] MEDS: CITALOPRAM HYDROBROMIDE 20 MG TABLET PO SCH (09:12)
[2018-05-25] MEDS: RisperiDONE 2 MG TABLET PO SCH ×2 (09:12→20:45)
[2018-05-25 09:53] VITALS: BP 103/70
[2018-05-25] MEDS: OLANZapine 5 MG RAPDIS TABLET PO PRN (12:15)
[2018-05-25] MEDS: LORazepam 2 MG TABLET PO PRN ×2 (12:15→17:05)
[2018-05-25] MEDS: ALBUTEROL SULFATE HFA 90 MCG/PUFF 8 GM INHALER IH PRN (12:17)
[2018-05-25 17:00] VITALS: BP 116/66
[2018-05-26 08:05] VITALS: BP 123/81
[2018-05-26] MEDS ORDERED: PALI234D IM (08:16)
[2018-05-26] MEDS: CITALOPRAM HYDROBROMIDE 20 MG TABLET PO SCH (08:46)
[2018-05-26] MEDS: RisperiDONE 2 MG TABLET PO SCH (08:48)
[2018-05-26] MEDS: ALBUTEROL SULFATE HFA 90 MCG/PUFF 8 GM INHALER IH PRN (10:33)
[2018-06-21] MEDS ORDERED: PALIPERIDONE PALMITATE 234 MG/1.5 ML SYRINGE IM SCH (09:00)
== END 2018-05-26 11:00 | disposition home or self-care (01) | DRG 885 ==
LOC: 3EX 20:40
DX: F25.1 Schizoaffective disorder, depressive type (principal); R45.851 Suicidal ideations; E78.5 Hyperlipidemia, unspecified; G47.00 Insomnia, unspecified; F19.10 Other psychoactive substance abuse, uncomplicated; K21.9 Gastro-esophageal reflux disease without esophagitis; F41.9 Anxiety disorder, unspecified; Z59.0 Homelessness; Z79.899 Other long term (current) drug therapy; Z28.21 Immunization not carried out because of patient refusal; Z88.8 Allergy status to other drugs, medicaments and biological substances; Z71.51 Drug abuse counseling and surveillance of drug abuser
CPT/HCPCS: 80307; 83036; 84439; 84443; 87081; G0378; J3535

== ENCOUNTER 2019-02-02 11:54 | Inpatient (IN) | payer MEDICARE, MEDICAID ==
[~2019-02-02] VITALS: Ht 167.6 cm; Wt 90.3 kg
[~2019-02-02 11:54] MED LIST changes: +PALI234D IM; -RISP1TAB89 PO
[2019-02-02] MEDS ORDERED: RisperiDONE 1 MG TABLET PO ONE (13:45)
[2019-02-02 14:14] LABS: EOSINOPHILS % (AUTO) 1.4 % (1.0-6.0); HEMOGLOBIN 14.7 g/dL (13.5-17.5); LYMPHOCYTES # (AUTO) 1.7 K/uL (1.0-4.8); LYMPHOCYTES % (AUTO) 20.2 % (22.0-44.0); MEAN CORPUSCULAR HEMOGLOBIN 29.6 pg (26.0-34.0); MEAN CORPUSCULAR HGB CONC 33.4 G/dL (31.0-37.0); MEAN CORPUSCULAR VOLUME 89 fL (80-100); MONOCYTES # (AUTO) 0.6 K/uL (0.1-1.0); MONOCYTES % (AUTO) 7.6 % (2.0-9.0); NEUTROPHILS # (AUTO) 5.8 K/uL (1.8-7.7); NEUTROPHILS % (AUTO) 69.8 % (40.0-70.0); PLATELET COUNT (AUTO) 243 K/uL (150-450); RED BLOOD CELL COUNT(AUTO) 4.96 MIL/uL (4.50-5.90)
[2019-02-02 14:27] LABS: ANION GAP 5 mmol/L (8-16); CALCIUM, TOTAL 8.5 mg/dL (8.8-10.5); CARBON DIOXIDE 31 mmol/L (22-29); CHLORIDE 104 mmol/L (98-107); CREATININE 0.82 mg/dL (0.60-1.30); GLOMERULAR FILTR. RATE CALC > 60 mL/min (>60); GLUCOSE,RANDOM 103 mg/dL (70-110); POTASSIUM 3.9 mmol/L (3.5-5.1); SODIUM SERUM 140 mmol/L (136-145); UREA NITROGEN, BLOOD 12 mg/dL (7-18)
[2019-02-02 14:33] LABS: ALANINE AMINOTRANSFERASE 18 U/L (12-78); ALBUMIN 3.3 g/dL (3.4-5.0); ALKALINE PHOSPHATASE 87 U/L (46-116); ASPARTATE AMINOTRANSFERASE 13 U/L (15-37); BILIRUBIN,TOTAL 0.2 mg/dL (0.1-1.0); TOTAL PROTEIN, SERUM 6.7 g/dL (6.4-8.2)
[2019-02-02 15:21] LABS: APPEARANCE,URINE CLEAR (CLEAR); BILIRUBIN,URINE NEGATIVE (NEGATIVE); GLUCOSE, URINE (UA) NEGATIVE (NEGATIVE); KETONES,URINE NEGATIVE (NEGATIVE); LEUKOCYTE ESTERASE ,URINE NEGATIVE (NEGATIVE); NITRATE,URINE NEGATIVE (NEGATIVE); OCCULT BLOOD,URINE NEGATIVE (NEGATIVE); PROTEIN,URINE NEGATIVE (NEGATIVE)
[2019-02-02 15:26] LABS: AMPHET/METH SCREEN,URINE NEGATIVE (NEGATIVE); BARBITURATE SCREEN, URINE NEGATIVE (NEGATIVE); BENZODIAZEPINES SCREEN,URINE NEGATIVE (NEGATIVE); CANNABINOID SCREEN,URINE NEGATIVE (NEGATIVE); COCAINE SCREEN,URINE NEGATIVE (NEGATIVE); METHADONE SCREEN, URINE NEGATIVE (NEGATIVE); OPIATE SCREEN,URINE NEGATIVE (NEGATIVE)
[2019-02-02 15:28] LABS: PHENCYCLIDINE SCREEN,URINE NEGATIVE (NEGATIVE)
[2019-02-02] MEDS: QUEtiapine FUMARATE 100 MG TABLET PO PRN (15:43)
[2019-02-02] MEDS: LORazepam 2 MG TABLET PO PRN (15:43)
[2019-02-02 18:50] VITALS: BP 114/80
[2019-02-02 18:53] VITALS: BP 114/80
[2019-02-02] MEDS ORDERED: INFLUENZA VIRUS VACCINE QVS 2019-20 (3YR+)/PF 60 MCG/0.5 ML SYRINGE IM ONE (20:15)
[2019-02-03 06:49] VITALS: BP_SYST 108; BP_SYST 110; BP_DIAS 70; BP_DIAS 78
[2019-02-03 08:04] VITALS: BP 106/68
[2019-02-03 08:45] LABS: CHOL/HDL RATIO 4.3 (4.2-7.3); THYROID STIMULATING HORMONE 1.18 uIU/mL (0.36-3.74)
[2019-02-03] MEDS: NICOTINE 14 MG/24 HOUR PATCH TD SCH (09:48)
[2019-02-03 16:28] VITALS: BP 122/78
[2019-02-03] MEDS: RisperiDONE 2 MG TABLET PO SCH (20:28)
[2019-02-04 00:09] VITALS: BP 120/81
[2019-02-04 08:24] VITALS: BP 112/60
[2019-02-04] MEDS: NICOTINE 14 MG/24 HOUR PATCH TD SCH (09:06)
[2019-02-04] MEDS: RisperiDONE 2 MG TABLET PO SCH ×2 (09:06→20:32)
[2019-02-04] MEDS: CITALOPRAM HYDROBROMIDE 20 MG TABLET PO SCH (09:09)
[2019-02-04] MEDS: QUEtiapine FUMARATE 100 MG TABLET PO PRN (15:54)
[2019-02-04 16:09] VITALS: BP 119/76
[2019-02-05 08:35] VITALS: BP 125/89
[2019-02-05] MEDS: CITALOPRAM HYDROBROMIDE 20 MG TABLET PO SCH (08:38)
[2019-02-05] MEDS: RisperiDONE 2 MG TABLET PO SCH ×2 (08:39→20:28)
[2019-02-05] MEDS: NICOTINE 14 MG/24 HOUR PATCH TD SCH (08:39)
[2019-02-05] MEDS: LORazepam 2 MG TABLET PO PRN (08:58)
[2019-02-05] MEDS: QUEtiapine FUMARATE 100 MG TABLET PO PRN (08:59)
[2019-02-05 16:04] VITALS: BP 129/81
[2019-02-06 00:03] VITALS: BP 105/60
[2019-02-06 08:26] VITALS: BP 116/69
[2019-02-06] MEDS: RisperiDONE 2 MG TABLET PO SCH ×2 (10:24→20:12)
[2019-02-06] MEDS: CITALOPRAM HYDROBROMIDE 20 MG TABLET PO SCH (10:24)
[2019-02-06] MEDS: NICOTINE 14 MG/24 HOUR PATCH TD SCH (10:24)
[2019-02-06] MEDS: QUEtiapine FUMARATE 100 MG TABLET PO PRN (14:40)
[2019-02-06 16:02] VITALS: BP 111/70
[2019-02-07 07:01] VITALS: BP 100/69
[2019-02-07] MEDS: CITALOPRAM HYDROBROMIDE 20 MG TABLET PO SCH (08:06)
[2019-02-07] MEDS: RisperiDONE 2 MG TABLET PO SCH ×2 (08:06→20:06)
[2019-02-07] MEDS: NICOTINE 14 MG/24 HOUR PATCH TD SCH (08:07)
[2019-02-07 08:10] VITALS: BP 117/66
[2019-02-07] MEDS ORDERED: ACETAMINOPHEN 325 MG TABLET PO PRN (12:15)
[2019-02-07] MEDS ORDERED: IBUPROFEN 600 MG TABLET PO PRN (12:15)
[2019-02-07 16:02] VITALS: BP 121/79
[2019-02-08 01:30] VITALS: BP 118/70
[2019-02-08] MEDS: ZOLPIDEM TARTRATE 10 MG TABLET PO PRN (01:31)
[2019-02-08 06:28] VITALS: BP 122/76
[2019-02-08] MEDS: QUEtiapine FUMARATE 100 MG TABLET PO PRN ×2 (06:29→16:08)
[2019-02-08] MEDS: LORazepam 2 MG TABLET PO PRN ×2 (06:52→14:29)
[2019-02-08 08:35] VITALS: BP 109/66
[2019-02-08] MEDS: CITALOPRAM HYDROBROMIDE 20 MG TABLET PO SCH (08:39)
[2019-02-08] MEDS: NICOTINE 14 MG/24 HOUR PATCH TD SCH (08:39)
[2019-02-08] MEDS: RisperiDONE 2 MG TABLET PO SCH ×2 (08:39→20:27)
[2019-02-08 16:03] VITALS: BP 122/77
[2019-02-09 08:04] VITALS: BP 104/65
[2019-02-09] MEDS: RisperiDONE 2 MG TABLET PO SCH ×2 (08:52→20:28)
[2019-02-09] MEDS: CITALOPRAM HYDROBROMIDE 20 MG TABLET PO SCH (08:52)
[2019-02-09] MEDS: NICOTINE 14 MG/24 HOUR PATCH TD SCH (08:53)
[2019-02-09] MEDS: QUEtiapine FUMARATE 100 MG TABLET PO PRN ×2 (11:28→17:42)
[2019-02-09] MEDS: LORazepam 2 MG TABLET PO PRN (11:28)
[2019-02-09 16:05] VITALS: BP 120/83
[2019-02-10 00:16] VITALS: BP 126/67
[2019-02-10 00:17] VITALS: BP 126/67
[2019-02-10 08:05] VITALS: BP 114/77
[2019-02-10] MEDS: CITALOPRAM HYDROBROMIDE 20 MG TABLET PO SCH (08:23)
[2019-02-10] MEDS: RisperiDONE 2 MG TABLET PO SCH (08:23)
[2019-02-10] MEDS: NICOTINE 14 MG/24 HOUR PATCH TD SCH (08:23)
[2019-02-10] MEDS: QUEtiapine FUMARATE 100 MG TABLET PO PRN (13:15)
[2019-02-10] MEDS: LORazepam 2 MG TABLET PO PRN (13:15)
[2019-02-10 16:02] VITALS: BP_SYST 108; BP_SYST 96; BP_DIAS 46; BP_DIAS 60
[2019-02-10] MEDS: RisperiDONE 3 MG TABLET PO SCH (20:02)
[2019-02-10] MEDS ORDERED: PALIPERIDONE PALMITATE 234 MG/1.5 ML SYRINGE IM ONE (21:00)
[2019-02-11 00:42] VITALS: BP 119/69
[2019-02-11 08:13] VITALS: BP 125/93
[2019-02-11] MEDS: CITALOPRAM HYDROBROMIDE 20 MG TABLET PO SCH (08:24)
[2019-02-11] MEDS: NICOTINE 14 MG/24 HOUR PATCH TD SCH (08:24)
[2019-02-11] MEDS: RisperiDONE 3 MG TABLET PO SCH ×2 (08:25→20:29)
[2019-02-11 16:01] VITALS: BP 115/76
[2019-02-12 05:19] VITALS: BP 110/67
[2019-02-12] MEDS: LORazepam 2 MG TABLET PO PRN (07:22)
[2019-02-12] MEDS: QUEtiapine FUMARATE 100 MG TABLET PO PRN ×2 (07:22→18:14)
[2019-02-12 08:13] VITALS: BP 118/81
[2019-02-12] MEDS: PANTOPRAZOLE SODIUM 40 MG DR TABLET PO SCH (08:51)
[2019-02-12] MEDS: RisperiDONE 3 MG TABLET PO SCH ×2 (08:51→20:38)
[2019-02-12] MEDS: NICOTINE 14 MG/24 HOUR PATCH TD SCH (08:51)
[2019-02-12] MEDS: CITALOPRAM HYDROBROMIDE 20 MG TABLET PO SCH (08:52)
[2019-02-12 16:01] VITALS: BP 122/78
[2019-02-13 00:15] VITALS: BP 124/63
[2019-02-13 08:19] VITALS: BP 103/60
[2019-02-13] MEDS: PANTOPRAZOLE SODIUM 40 MG DR TABLET PO SCH (08:26)
[2019-02-13] MEDS: CITALOPRAM HYDROBROMIDE 20 MG TABLET PO SCH (08:26)
[2019-02-13] MEDS: NICOTINE 14 MG/24 HOUR PATCH TD SCH (08:26)
[2019-02-13] MEDS: RisperiDONE 3 MG TABLET PO SCH ×2 (08:26→20:24)
[2019-02-13 16:21] VITALS: BP 125/78
[2019-02-13] MEDS: ZOLPIDEM TARTRATE 10 MG TABLET PO PRN (22:39)
[2019-02-14 04:36] VITALS: BP 110/67
[2019-02-14] MEDS: QUEtiapine FUMARATE 100 MG TABLET PO PRN (04:53)
[2019-02-14] MEDS: NICOTINE 14 MG/24 HOUR PATCH TD SCH (08:28)
[2019-02-14] MEDS: RisperiDONE 3 MG TABLET PO SCH ×2 (08:28→20:01)
[2019-02-14] MEDS: PANTOPRAZOLE SODIUM 40 MG DR TABLET PO SCH (08:28)
[2019-02-14] MEDS: CITALOPRAM HYDROBROMIDE 20 MG TABLET PO SCH (08:28)
[2019-02-14] MEDS ORDERED: PALIPERIDONE PALMITATE 156 MG/ML SYRINGE IM ONE (09:00)
[2019-02-14] MEDS: LORazepam 2 MG TABLET PO PRN ×2 (11:24→18:48)
[2019-02-14 16:11] VITALS: BP 123/82
[2019-02-15 00:11] VITALS: BP 108/68
[2019-02-15 08:14] VITALS: BP 107/60
[2019-02-15] MEDS: PANTOPRAZOLE SODIUM 40 MG DR TABLET PO SCH (08:50)
[2019-02-15] MEDS: NICOTINE 14 MG/24 HOUR PATCH TD SCH (08:50)
[2019-02-15] MEDS: CITALOPRAM HYDROBROMIDE 20 MG TABLET PO SCH (08:50)
[2019-02-15] MEDS: RisperiDONE 3 MG TABLET PO SCH ×2 (08:50→20:32)
[2019-02-15] MEDS: LORazepam 2 MG TABLET PO PRN ×2 (12:47→18:00)
[2019-02-15 16:11] VITALS: BP 123/68
[2019-02-15 23:46] VITALS: BP 102/67
[2019-02-16 00:29] VITALS: BP 102/63
[2019-02-16 08:05] VITALS: BP 125/77
[2019-02-16] MEDS: NICOTINE 14 MG/24 HOUR PATCH TD SCH (08:50)
[2019-02-16] MEDS: CITALOPRAM HYDROBROMIDE 20 MG TABLET PO SCH (08:50)
[2019-02-16] MEDS: PANTOPRAZOLE SODIUM 40 MG DR TABLET PO SCH (08:50)
[2019-02-16] MEDS: RisperiDONE 3 MG TABLET PO SCH ×2 (08:50→20:36)
[2019-02-16] MEDS: QUEtiapine FUMARATE 100 MG TABLET PO PRN (12:55)
[2019-02-16 16:02] VITALS: BP 112/68
[2019-02-16] MEDS: LORazepam 2 MG TABLET PO PRN (18:03)
[2019-02-16] MEDS ORDERED: BISMUTH SUBSALICYLATE 262 MG CHEWABLE TABLET CHEW PRN (18:15)
[2019-02-17 00:13] VITALS: BP 106/62
[2019-02-17 08:03] VITALS: BP 110/62
[2019-02-17] MEDS: PANTOPRAZOLE SODIUM 40 MG DR TABLET PO SCH (09:00)
[2019-02-17] MEDS: NICOTINE 14 MG/24 HOUR PATCH TD SCH (09:00)
[2019-02-17] MEDS: RisperiDONE 3 MG TABLET PO SCH ×2 (09:00→20:28)
[2019-02-17] MEDS: CITALOPRAM HYDROBROMIDE 20 MG TABLET PO SCH (09:00)
[2019-02-17 16:11] VITALS: BP 117/80
[2019-02-17] MEDS: LORazepam 2 MG TABLET PO PRN (17:40)
[2019-02-18 00:05] VITALS: BP 110/62
[2019-02-18 07:58] VITALS: BP 115/76
[2019-02-18] MEDS: PANTOPRAZOLE SODIUM 40 MG DR TABLET PO SCH (08:04)
[2019-02-18] MEDS: CITALOPRAM HYDROBROMIDE 20 MG TABLET PO SCH (08:04)
[2019-02-18] MEDS: RisperiDONE 3 MG TABLET PO SCH ×2 (08:04→20:35)
[2019-02-18] MEDS: NICOTINE 14 MG/24 HOUR PATCH TD SCH (08:04)
[2019-02-18] MEDS: LORazepam 2 MG TABLET PO PRN (08:28)
[2019-02-18] MEDS: QUEtiapine FUMARATE 100 MG TABLET PO PRN (14:59)
[2019-02-18 16:02] VITALS: BP 124/74
[2019-02-19 07:17] VITALS: BP 120/81
[2019-02-19 08:04] VITALS: BP 121/61
[2019-02-19] MEDS: NICOTINE 14 MG/24 HOUR PATCH TD SCH (08:16)
[2019-02-19] MEDS: RisperiDONE 3 MG TABLET PO SCH ×2 (08:16→20:35)
[2019-02-19] MEDS: CITALOPRAM HYDROBROMIDE 20 MG TABLET PO SCH (08:16)
[2019-02-19] MEDS: PANTOPRAZOLE SODIUM 40 MG DR TABLET PO SCH (08:16)
[2019-02-19] MEDS: QUEtiapine FUMARATE 100 MG TABLET PO PRN (11:02)
[2019-02-19 17:45] VITALS: BP 120/78
[2019-02-20 06:25] VITALS: BP 124/78
[2019-02-20 08:13] VITALS: BP 122/79
[2019-02-20] MEDS: CITALOPRAM HYDROBROMIDE 20 MG TABLET PO SCH (08:20)
[2019-02-20] MEDS: NICOTINE 14 MG/24 HOUR PATCH TD SCH (08:20)
[2019-02-20] MEDS: RisperiDONE 3 MG TABLET PO SCH ×2 (08:20→21:40)
[2019-02-20] MEDS: PANTOPRAZOLE SODIUM 40 MG DR TABLET PO SCH (08:20)
[2019-02-20 16:02] VITALS: BP 122/85
[2019-02-20] MEDS: BISACODYL 5 MG EC TABLET PO PRN (16:24)
[2019-02-21 08:04] VITALS: BP 121/82
[2019-02-21] MEDS: PANTOPRAZOLE SODIUM 40 MG DR TABLET PO SCH (08:11)
[2019-02-21] MEDS: RisperiDONE 3 MG TABLET PO SCH ×2 (08:11→20:03)
[2019-02-21] MEDS: NICOTINE 14 MG/24 HOUR PATCH TD SCH (08:11)
[2019-02-21] MEDS: CITALOPRAM HYDROBROMIDE 20 MG TABLET PO SCH (08:11)
[2019-02-21] MEDS ORDERED: ONDANSETRON HCL 4 MG TABLET PO PRN (10:00)
[2019-02-21] MEDS: BISACODYL 5 MG EC TABLET PO PRN (10:38)
[2019-02-21 16:00] VITALS: BP 121/81
[2019-02-22 04:31] VITALS: BP 123/79
[2019-02-22] MEDS: RisperiDONE 3 MG TABLET PO SCH (08:14)
[2019-02-22] MEDS: NICOTINE 14 MG/24 HOUR PATCH TD SCH (08:14)
[2019-02-22] MEDS: PANTOPRAZOLE SODIUM 40 MG DR TABLET PO SCH (08:14)
[2019-02-22] MEDS: CITALOPRAM HYDROBROMIDE 20 MG TABLET PO SCH (08:14)
[2019-02-22 08:34] VITALS: BP 121/83
[2019-02-22 16:03] VITALS: BP 122/84
[2019-02-22] MEDS: ZOLPIDEM TARTRATE 10 MG TABLET PO PRN (21:03)
[2019-02-23 05:12] VITALS: BP 111/60
[2019-02-23 07:46] LABS: BASOPHILS % (AUTO) 0.8 % (0.0-2.0); EOSINOPHILS % (AUTO) 1.2 % (1.0-6.0); HEMATOCRIT 45.5 % (41-53); HEMOGLOBIN 15.3 g/dL (13.5-17.5); LYMPHOCYTES # (AUTO) 2.3 K/uL (1.0-4.8); LYMPHOCYTES % (AUTO) 28.2 % (22.0-44.0); MEAN CORPUSCULAR HEMOGLOBIN 29.8 pg (26.0-34.0); MEAN CORPUSCULAR HGB CONC 33.7 G/dL (31.0-37.0); MEAN CORPUSCULAR VOLUME 89 fL (80-100); MONOCYTES # (AUTO) 0.8 K/uL (0.1-1.0); MONOCYTES % (AUTO) 9.7 % (2.0-9.0); NEUTROPHILS # (AUTO) 4.9 K/uL (1.8-7.7); NEUTROPHILS % (AUTO) 60.1 % (40.0-70.0); PLATELET COUNT (AUTO) 271 K/uL (150-450); RED BLOOD CELL COUNT(AUTO) 5.14 MIL/uL (4.50-5.90); RED CELL DISTRIBUTION WIDTH 13.3 % (11.5-14.5)
[2019-02-23 08:10] VITALS: BP 135/93
[2019-02-23] MEDS: CITALOPRAM HYDROBROMIDE 20 MG TABLET PO SCH (08:19)
[2019-02-23] MEDS: PANTOPRAZOLE SODIUM 40 MG DR TABLET PO SCH (08:19)
[2019-02-23] MEDS: NICOTINE 14 MG/24 HOUR PATCH TD SCH (08:20)
[2019-02-23] MEDS: QUEtiapine FUMARATE 100 MG TABLET PO PRN (08:24)
[2019-02-23 16:04] VITALS: BP 124/90
[2019-02-24 05:24] VITALS: BP 114/72
[2019-02-24 08:03] VITALS: BP 122/91
[2019-02-24] MEDS: CITALOPRAM HYDROBROMIDE 20 MG TABLET PO SCH (08:53)
[2019-02-24] MEDS: NICOTINE 14 MG/24 HOUR PATCH TD SCH (08:53)
[2019-02-24] MEDS: PANTOPRAZOLE SODIUM 40 MG DR TABLET PO SCH (08:53)
[2019-02-24 15:53] VITALS: BP 121/90
[2019-02-24 16:27] VITALS: BP 121/90
[2019-02-25 06:13] VITALS: BP 121/79
[2019-02-25 08:13] VITALS: BP 122/79
[2019-02-25 08:22] LABS: BASOPHILS % (AUTO) 0.8 % (0.0-2.0); EOSINOPHILS % (AUTO) 1.4 % (1.0-6.0); HEMATOCRIT 46.8 % (41-53); HEMOGLOBIN 15.5 g/dL (13.5-17.5); LYMPHOCYTES # (AUTO) 2.5 K/uL (1.0-4.8); LYMPHOCYTES % (AUTO) 29.2 % (22.0-44.0); MEAN CORPUSCULAR HEMOGLOBIN 29.3 pg (26.0-34.0); MEAN CORPUSCULAR VOLUME 89 fL (80-100); MONOCYTES # (AUTO) 0.7 K/uL (0.1-1.0); MONOCYTES % (AUTO) 8.4 % (2.0-9.0); NEUTROPHILS # (AUTO) 5.2 K/uL (1.8-7.7); NEUTROPHILS % (AUTO) 60.2 % (40.0-70.0); PLATELET COUNT (AUTO) 256 K/uL (150-450); RED BLOOD CELL COUNT(AUTO) 5.27 MIL/uL (4.50-5.90); RED CELL DISTRIBUTION WIDTH 13.4 % (11.5-14.5)
[2019-02-25] MEDS: CITALOPRAM HYDROBROMIDE 20 MG TABLET PO SCH (08:26)
[2019-02-25] MEDS: NICOTINE 14 MG/24 HOUR PATCH TD SCH (08:26)
[2019-02-25] MEDS: PANTOPRAZOLE SODIUM 40 MG DR TABLET PO SCH (08:26)
[2019-02-25 16:01] VITALS: BP 114/84
[2019-02-26 00:15] VITALS: BP 121/80
[2019-02-26 08:10] VITALS: BP 140/77
[2019-02-26] MEDS: CITALOPRAM HYDROBROMIDE 20 MG TABLET PO SCH (08:10)
[2019-02-26] MEDS: PANTOPRAZOLE SODIUM 40 MG DR TABLET PO SCH (08:10)
[2019-02-26] MEDS: NICOTINE 14 MG/24 HOUR PATCH TD SCH (08:12)
[2019-02-26 16:10] VITALS: BP 133/82
[2019-02-27 06:42] VITALS: BP 116/81
[2019-02-27 08:06] VITALS: BP 117/68
[2019-02-27] MEDS: NICOTINE 14 MG/24 HOUR PATCH TD SCH (08:10)
[2019-02-27] MEDS: PANTOPRAZOLE SODIUM 40 MG DR TABLET PO SCH (08:11)
[2019-02-27] MEDS: CITALOPRAM HYDROBROMIDE 20 MG TABLET PO SCH (08:11)
[2019-02-27 16:08] VITALS: BP 121/67
[2019-02-28 04:26] VITALS: BP 102/73
[2019-02-28] MEDS: PANTOPRAZOLE SODIUM 40 MG DR TABLET PO SCH (08:12)
[2019-02-28] MEDS: CITALOPRAM HYDROBROMIDE 20 MG TABLET PO SCH (08:12)
[2019-02-28] MEDS: NICOTINE 14 MG/24 HOUR PATCH TD SCH (08:13)
[2019-02-28 08:14] VITALS: BP 120/68
[2019-02-28 16:01] VITALS: BP 116/76
[2019-03-01 04:04] VITALS: BP 108/74
[2019-03-01] MEDS: CITALOPRAM HYDROBROMIDE 20 MG TABLET PO SCH (07:50)
[2019-03-01] MEDS: PANTOPRAZOLE SODIUM 40 MG DR TABLET PO SCH (07:50)
[2019-03-01] MEDS: NICOTINE 14 MG/24 HOUR PATCH TD SCH (07:51)
[2019-03-01 08:17] VITALS: BP 113/72
[2019-03-01] MEDS ORDERED: CITA-106 PO (09:29)
[2019-03-01] MEDS ORDERED: PALI234D IM (09:29)
[2019-03-01] MEDS ORDERED: PANT40TA25 PO (09:48)
[2019-03-14] MEDS ORDERED: PALIPERIDONE PALMITATE 234 MG/1.5 ML SYRINGE IM SCH (09:00)
== END 2019-03-01 10:45 | disposition home or self-care (01) | DRG 885 ==
LOC: EMS 11:58 → B2X 16:31
DX: F25.0 Schizoaffective disorder, bipolar type (principal); E46 Unspecified protein-calorie malnutrition; E78.5 Hyperlipidemia, unspecified; F12.90 Cannabis use, unspecified, uncomplicated; F15.90 Other stimulant use, unspecified, uncomplicated; K21.9 Gastro-esophageal reflux disease without esophagitis; F41.9 Anxiety disorder, unspecified; K59.00 Constipation, unspecified; Z59.0 Homelessness; Z79.899 Other long term (current) drug therapy; Z91.5 Personal history of self-harm; Z88.0 Allergy status to penicillin; Z88.8 Allergy status to other drugs, medicaments and biological substances; Z28.89 Immunization not carried out for other reason; Z68.32 Body mass index [BMI] 32.0-32.9, adult
CPT/HCPCS: 83735; 84439; 84443; 90686; G0480; Q0162

== ENCOUNTER 2019-05-03 08:26 | Inpatient (IN) | payer MEDICARE, MEDICAID ==
[~2019-05-03] VITALS: Ht 170.2 cm; Wt 100.3 kg
[~2019-05-03 08:26] MED LIST changes: +PANT40TA25 PO; -RISP2 PO
[2019-05-03] MEDS ORDERED: DOXE10 PO (09:11)
[2019-05-03 09:23] LABS: BASOPHILS % (AUTO) 0.5 % (0.0-2.0); EOSINOPHILS % (AUTO) 1.9 % (1.0-6.0); HEMATOCRIT 45.3 % (41-53); HEMOGLOBIN 15.2 g/dL (13.5-17.5); LYMPHOCYTES % (AUTO) 21.4 % (22.0-44.0); MEAN CORPUSCULAR HEMOGLOBIN 29.6 pg (26.0-34.0); MEAN CORPUSCULAR HGB CONC 33.6 G/dL (31.0-37.0); MEAN CORPUSCULAR VOLUME 88 fL (80-100); MONOCYTES # (AUTO) 0.8 K/uL (0.1-1.0); MONOCYTES % (AUTO) 8.5 % (2.0-9.0); NEUTROPHILS # (AUTO) 6.3 K/uL (1.8-7.7); NEUTROPHILS % (AUTO) 67.7 % (40.0-70.0); PLATELET COUNT (AUTO) 236 K/uL (150-450); RED BLOOD CELL COUNT(AUTO) 5.14 MIL/uL (4.50-5.90); RED CELL DISTRIBUTION WIDTH 12.9 % (11.5-14.5)
[2019-05-03 09:32] LABS: ANION GAP 7 mmol/L (8-16); CALCIUM, TOTAL 8.6 mg/dL (8.8-10.5); CARBON DIOXIDE 27 mmol/L (22-29); CHLORIDE 105 mmol/L (98-107); CREATININE 0.64 mg/dL (0.60-1.30); GLOMERULAR FILTR. RATE CALC > 60 mL/min (>60); GLUCOSE,RANDOM 91 mg/dL (70-110); POTASSIUM 4.2 mmol/L (3.5-5.1); SODIUM SERUM 139 mmol/L (136-145); UREA NITROGEN, BLOOD 12 mg/dL (7-18)
[2019-05-03 09:38] LABS: ALANINE AMINOTRANSFERASE 29 U/L (12-78); ALBUMIN 3.5 g/dL (3.4-5.0); ALKALINE PHOSPHATASE 92 U/L (46-116); ASPARTATE AMINOTRANSFERASE 18 U/L (15-37); BILIRUBIN,TOTAL 0.4 mg/dL (0.1-1.0)
[2019-05-03] MEDS ORDERED: ZOLPIDEM TARTRATE 10 MG TABLET PO PRN (10:45)
[2019-05-03 14:08] VITALS: BP 118/78
[2019-05-03] MEDS ORDERED: PALI234D IM (14:09)
[2019-05-03 16:42] VITALS: BP 106/61
[2019-05-03] MEDS: LORazepam 2 MG TABLET PO PRN (18:56)
[2019-05-04 00:04] VITALS: BP 105/68
[2019-05-04] MEDS ORDERED: INFLUENZA VIRUS VACCINE QVS 2019-20 (3YR+)/PF 60 MCG/0.5 ML SYRINGE IM ONE (07:45)
[2019-05-04 08:04] VITALS: BP 113/67
[2019-05-04] MEDS: PANTOPRAZOLE SODIUM 40 MG DR TABLET PO SCH (08:55)
[2019-05-04] MEDS: NICOTINE 14 MG/24 HOUR PATCH TD SCH (08:55)
[2019-05-04 08:56] LABS: CHOL/HDL RATIO 4.5 (4.2-7.3); FREE T4 (FREE THYROXINE) 0.92 ng/dL (0.76-1.46); THYROID STIMULATING HORMONE 0.75 uIU/mL (0.36-3.74)
[2019-05-04] MEDS ORDERED: DOXEPIN HCL 10 MG CAPSULE PO SCH (11:30)
[2019-05-04] MEDS ORDERED: CITALOPRAM HYDROBROMIDE 20 MG TABLET PO SCH (11:30)
[2019-05-04] MEDS: CITALOPRAM HYDROBROMIDE 20 MG TABLET PO SCH (12:51)
[2019-05-04] MEDS: LORazepam 2 MG TABLET PO PRN (12:51)
[2019-05-04] MEDS: QUEtiapine FUMARATE 100 MG TABLET PO PRN (13:23)
[2019-05-04 16:07] VITALS: BP 133/90
[2019-05-04] MEDS: RisperiDONE 2 MG TABLET PO SCH (16:50)
[2019-05-04] MEDS ORDERED: RisperiDONE 2 MG TABLET PO SCH (17:00)
[2019-05-04] MEDS: DOXEPIN HCL 10 MG CAPSULE PO SCH (17:11)
[2019-05-05 05:57] VITALS: BP 106/62
[2019-05-05 08:33] VITALS: BP 100/63
[2019-05-05] MEDS: PANTOPRAZOLE SODIUM 40 MG DR TABLET PO SCH (08:37)
[2019-05-05] MEDS: DOXEPIN HCL 10 MG CAPSULE PO SCH (08:37)
[2019-05-05] MEDS: RisperiDONE 2 MG TABLET PO SCH ×2 (08:37→16:55)
[2019-05-05] MEDS: CITALOPRAM HYDROBROMIDE 20 MG TABLET PO SCH (08:37)
[2019-05-05] MEDS: NICOTINE 14 MG/24 HOUR PATCH TD SCH (08:37)
[2019-05-05 16:00] VITALS: BP 129/95
[2019-05-06 00:43] VITALS: BP 106/64
[2019-05-06] MEDS: CITALOPRAM HYDROBROMIDE 20 MG TABLET PO SCH (08:15)
[2019-05-06] MEDS: DOXEPIN HCL 10 MG CAPSULE PO SCH (08:15)
[2019-05-06] MEDS: PANTOPRAZOLE SODIUM 40 MG DR TABLET PO SCH (08:15)
[2019-05-06] MEDS: RisperiDONE 2 MG TABLET PO SCH ×2 (08:20→16:54)
[2019-05-06] MEDS: NICOTINE 14 MG/24 HOUR PATCH TD SCH (08:20)
[2019-05-06 08:23] VITALS: BP 109/64
[2019-05-06] MEDS: LORazepam 2 MG TABLET PO PRN (12:34)
[2019-05-06 16:00] VITALS: BP 115/78
[2019-05-07 05:54] VITALS: BP 100/67
[2019-05-07 08:25] VITALS: BP 117/65
[2019-05-07] MEDS: CITALOPRAM HYDROBROMIDE 20 MG TABLET PO SCH (08:36)
[2019-05-07] MEDS: DOXEPIN HCL 10 MG CAPSULE PO SCH (08:36)
[2019-05-07] MEDS: PANTOPRAZOLE SODIUM 40 MG DR TABLET PO SCH (08:36)
[2019-05-07] MEDS: RisperiDONE 2 MG TABLET PO SCH ×2 (08:36→16:48)
[2019-05-07] MEDS: NICOTINE 14 MG/24 HOUR PATCH TD SCH (08:39)
[2019-05-07] MEDS: LORazepam 2 MG TABLET PO PRN ×2 (10:29→15:49)
[2019-05-07] MEDS: QUEtiapine FUMARATE 100 MG TABLET PO PRN ×2 (10:29→15:49)
[2019-05-07 16:15] VITALS: BP 114/78
[2019-05-08 06:15] VITALS: BP 100/68
[2019-05-08] MEDS: PANTOPRAZOLE SODIUM 40 MG DR TABLET PO SCH (08:19)
[2019-05-08] MEDS: CITALOPRAM HYDROBROMIDE 20 MG TABLET PO SCH (08:19)
[2019-05-08] MEDS: DOXEPIN HCL 10 MG CAPSULE PO SCH (08:19)
[2019-05-08] MEDS: RisperiDONE 2 MG TABLET PO SCH ×2 (08:19→16:04)
[2019-05-08] MEDS: NICOTINE 14 MG/24 HOUR PATCH TD SCH (08:20)
[2019-05-08 08:24] VITALS: BP 116/73
[2019-05-08] MEDS: QUEtiapine FUMARATE 100 MG TABLET PO PRN (13:15)
[2019-05-08] MEDS: LORazepam 2 MG TABLET PO PRN (13:15)
[2019-05-08 16:15] VITALS: BP 118/76
[2019-05-09] MEDS: QUEtiapine FUMARATE 100 MG TABLET PO PRN (07:03)
[2019-05-09] MEDS: DOXEPIN HCL 10 MG CAPSULE PO SCH (08:58)
[2019-05-09] MEDS: RisperiDONE 2 MG TABLET PO SCH ×2 (08:58→16:41)
[2019-05-09] MEDS: LORazepam 2 MG TABLET PO PRN (08:58)
[2019-05-09] MEDS: NICOTINE 14 MG/24 HOUR PATCH TD SCH (08:58)
[2019-05-09] MEDS: PANTOPRAZOLE SODIUM 40 MG DR TABLET PO SCH (08:58)
[2019-05-09] MEDS: CITALOPRAM HYDROBROMIDE 20 MG TABLET PO SCH (08:58)
[2019-05-09 09:19] VITALS: BP 95/52
[2019-05-09 16:05] VITALS: BP 121/78
[2019-05-10] MEDS: LORazepam 2 MG TABLET PO PRN (06:57)
[2019-05-10 07:10] VITALS: BP 118/73
[2019-05-10] MEDS ORDERED: RISP2TAB76 PO (07:33)
[2019-05-10 08:00] VITALS: BP 128/64
[2019-05-10] MEDS: DOXEPIN HCL 10 MG CAPSULE PO SCH (08:23)
[2019-05-10] MEDS: PANTOPRAZOLE SODIUM 40 MG DR TABLET PO SCH (08:23)
[2019-05-10] MEDS: CITALOPRAM HYDROBROMIDE 20 MG TABLET PO SCH (08:24)
[2019-05-10] MEDS: RisperiDONE 2 MG TABLET PO SCH (08:24)
[2019-05-10] MEDS: NICOTINE 14 MG/24 HOUR PATCH TD SCH (08:24)
[2019-05-10] MEDS ORDERED: CITA-106 PO (11:58)
[2019-05-10] MEDS ORDERED: RISP2 PO (11:58)
[2019-05-10] MEDS ORDERED: DOXE10 PO (11:58)
[2019-05-10] MEDS ORDERED: PANT40TA25 PO (13:48)
[2019-05-10] MEDS ORDERED: PALI234D IM (13:58)
== END 2019-05-10 15:30 | disposition home or self-care (01) | DRG 885 ==
LOC: EMS 08:31 → B2X 11:17 → B2S 13:15
DX: F25.1 Schizoaffective disorder, depressive type (principal); E78.5 Hyperlipidemia, unspecified; F12.90 Cannabis use, unspecified, uncomplicated; F15.90 Other stimulant use, unspecified, uncomplicated; K21.9 Gastro-esophageal reflux disease without esophagitis; Z91.19 Patient's noncompliance with other medical treatment and regimen; Z79.899 Other long term (current) drug therapy; Z23 Encounter for immunization; Z88.0 Allergy status to penicillin; Z88.8 Allergy status to other drugs, medicaments and biological substances
CPT/HCPCS: 84439; 84443; 90686; G0480

== ENCOUNTER 2020-01-13 18:06 | Emergency (ER) | payer OTHER ==
[~2020-01-13] VITALS: Ht 165.1 cm; Wt 98.0 kg
[~2020-01-13 18:06] MED LIST changes: +ARIP15TA2 PO; -CITA-106 PO; +CITA-144 PO; -PALI234D IM; -PANT40TA25 PO; +RISP3TAB14 PO
[2020-01-13 18:40] LABS: BASOPHILS % (AUTO) 0.9 % (0.0-2.0); EOSINOPHILS % (AUTO) 1.2 % (1.0-6.0); HEMATOCRIT 43.6 % (41-53); HEMOGLOBIN 14.4 g/dL (13.5-17.5); LYMPHOCYTES # (AUTO) 2.1 K/uL (1.0-4.8); LYMPHOCYTES % (AUTO) 24.8 % (22.0-44.0); MEAN CORPUSCULAR HEMOGLOBIN 28.5 pg (26.0-34.0); MEAN CORPUSCULAR VOLUME 86 fL (80-100); MONOCYTES # (AUTO) 0.8 K/uL (0.1-1.0); NEUTROPHILS # (AUTO) 5.4 K/uL (1.8-7.7); NEUTROPHILS % (AUTO) 64.1 % (40.0-70.0); PLATELET COUNT (AUTO) 264 K/uL (150-450); RED BLOOD CELL COUNT(AUTO) 5.06 MIL/uL (4.50-5.90); RED CELL DISTRIBUTION WIDTH 13.4 % (11.5-14.5)
[2020-01-13 19:14] LABS: ANION GAP 8 mmol/L (8-16); CARBON DIOXIDE 27 mmol/L (22-29); CHLORIDE 103 mmol/L (98-107); CREATININE 0.72 mg/dL (0.60-1.30); GLOMERULAR FILTR. RATE CALC > 60 mL/min (>60); GLUCOSE,RANDOM 99 mg/dL (70-110); POTASSIUM 3.9 mmol/L (3.5-5.1); SODIUM SERUM 138 mmol/L (136-145); UREA NITROGEN, BLOOD 10 mg/dL (7-18)
[2020-01-13 19:17] LABS: ALANINE AMINOTRANSFERASE 26 U/L (12-78); ALBUMIN 3.3 g/dL (3.4-5.0); ALKALINE PHOSPHATASE 104 U/L (46-116); ASPARTATE AMINOTRANSFERASE 18 U/L (15-37); BILIRUBIN,TOTAL 0.2 mg/dL (0.1-1.0); TOTAL PROTEIN, SERUM 6.6 g/dL (6.4-8.2)
[2020-01-13 20:26] LABS: COVID AG,FIA SOURCE NASOPHARYNGEAL
[2020-01-13 20:47] VITALS: BP 138/64
[2020-01-13] MEDS ORDERED: RisperiDONE 1 MG TABLET PO ONE (21:00)
[2020-01-13] MEDS ORDERED: LORazepam 1 MG TABLET PO ONE (21:00)
== END 2020-01-13 21:19 | disposition home or self-care (01) ==
LOC: EMS 18:06
DX: F15.90 Other stimulant use, unspecified, uncomplicated (principal); F20.9 Schizophrenia, unspecified; F32.9 Major depressive disorder, single episode, unspecified; F12.90 Cannabis use, unspecified, uncomplicated; Z88.0 Allergy status to penicillin; Z88.1 Allergy status to other antibiotic agents; Z79.899 Other long term (current) drug therapy; Z20.828 Contact with and (suspected) exposure to other viral communicable diseases
CPT/HCPCS: 36415; 80053; 85025; 87426; 99283; G0480

== ENCOUNTER 2020-07-27 14:49 | Emergency (ER) | payer OTHER ==
[~2020-07-27] VITALS: Ht 172.7 cm; Wt 86.4 kg
[~2020-07-27 14:49] MED LIST changes: -ARIP15TA2 PO; +ARIP15TA27 PO; -RISP3TAB14 PO; +RISP3TAB35 PO
[2020-07-27 15:48] LABS: BASOPHILS % (AUTO) 0.9 % (0.0-2.0); EOSINOPHILS % (AUTO) 1.6 % (1.0-6.0); HEMATOCRIT 42.3 % (41-53); HEMOGLOBIN 13.8 g/dL (13.5-17.5); LYMPHOCYTES # (AUTO) 2.2 K/uL (1.0-4.8); MEAN CORPUSCULAR HEMOGLOBIN 28.6 pg (26.0-34.0); MEAN CORPUSCULAR HGB CONC 32.6 G/dL (31.0-37.0); MEAN CORPUSCULAR VOLUME 88 fL (80-100); MONOCYTES # (AUTO) 0.8 K/uL (0.1-1.0); MONOCYTES % (AUTO) 9.1 % (2.0-9.0); NEUTROPHILS # (AUTO) 5.7 K/uL (1.8-7.7); NEUTROPHILS % (AUTO) 63.4 % (40.0-70.0); PLATELET COUNT (AUTO) 260 K/uL (150-450); RED BLOOD CELL COUNT(AUTO) 4.82 MIL/uL (4.50-5.90); RED CELL DISTRIBUTION WIDTH 13.6 % (11.5-14.5)
[2020-07-27 15:54] LABS: ANION GAP 7 mmol/L (8-16); CALCIUM, TOTAL 9.2 mg/dL (8.8-10.5); CARBON DIOXIDE 30 mmol/L (22-29); CHLORIDE 104 mmol/L (98-107); CREATININE 0.78 mg/dL (0.60-1.30); GLOMERULAR FILTR. RATE CALC > 60 mL/min (>60); GLUCOSE,RANDOM 98 mg/dL (70-110); POTASSIUM 4.3 mmol/L (3.5-5.1); SODIUM SERUM 141 mmol/L (136-145); UREA NITROGEN, BLOOD 15 mg/dL (7-18)
[2020-07-27 16:00] LABS: ALANINE AMINOTRANSFERASE 35 U/L (12-78); ALBUMIN 3.6 g/dL (3.4-5.0); ALKALINE PHOSPHATASE 86 U/L (46-116); ASPARTATE AMINOTRANSFERASE 24 U/L (15-37); BILIRUBIN,TOTAL 0.3 mg/dL (0.1-1.0); TOTAL PROTEIN, SERUM 6.8 g/dL (6.4-8.2)
[2020-07-27] MEDS: LEVOFLOXACIN 750 MG/D5% WATER 150 ML IV ONE (16:22)
[2020-07-27 16:32] LABS: D-DIMER 0.19 mg/L FEU (0.00-0.50); PROTHROMBIN TIME 10.8 SEC (9.4-11.6)
[2020-07-27 16:58] LABS: INFLUENZA TYPE A NEGATIVE FOR TYPE A (NEGATIVE); INFLUENZA TYPE B NEGATIVE FOR TYPE B (NEGATIVE)
[2020-07-27 19:30] VITALS: BP 134/66
== END 2020-07-27 21:11 | disposition left against medical advice (07) ==
LOC: EMS 14:49
DX: J18.9 Pneumonia, unspecified organism (principal); Z20.822 Contact with and (suspected) exposure to COVID-19; F32.9 Major depressive disorder, single episode, unspecified; F31.9 Bipolar disorder, unspecified; F20.9 Schizophrenia, unspecified; F12.90 Cannabis use, unspecified, uncomplicated; F15.90 Other stimulant use, unspecified, uncomplicated; Z88.0 Allergy status to penicillin; Z88.8 Allergy status to other drugs, medicaments and biological substances
CPT/HCPCS: 36415; 71045; 80053; 83880; 84484; 85025; 85379; 85610; 85730; 87040; 87426; 87804; 93005; 96365; 99285; J1956; U0003

== ENCOUNTER 2020-09-03 16:37 | Emergency (ER) | payer OTHER | END 2020-09-03 17:58 | disposition left against medical advice (07) | LOC: EMS 16:39 | DX: R45.851 Suicidal ideations (principal); Z53.21 Procedure and treatment not carried out due to patient leaving prior to being seen by health care provider ==